=== PATIENT | male | born 1975 | race Caucasian/White ===

== ENCOUNTER 2023-05-09 13:42 | Outpatient (OUT) | payer MEDICARE, MEDICAID, SELFPAY ==
--- NOTE | 2023-05-09 | XR_ITS ---
The [address] [address] Patient Name: SHEKHAR MCNEIL MRN: [id number] date: 1975 Sex: M Assigned Patient Location: [facility] Current Patient Location: [facility] Accession/Order Number: [id number] Exam Date: 05/09/2023 13:53 Report Date: 05/09/2023 23:50 At the request of: TRINY BEVERLY Procedure: XR foot RT min 3V EXAM: XR foot RT min 3V HISTORY: RIGHT FOOT PAIN COMPARISON: None. TECHNIQUE: 3 view study FINDINGS: There is a comminuted fracture of the distal second metatarsal with mild apex lateral angulation and dorsal offset of the distal fracture fragment. There are findings associated with previous ankle/hindfoot fusion with a long intramedullary leonardo stabilized by an interlocking calcaneal screw. The right extends proximally superior to the proximal margin of the films. Bony architecture is otherwise normal. Midfoot and forefoot articulations are intact. XR/XR foot RT min 3V IMPRESSION: Comminuted second metatarsal fracture. Previous ankle/hindfoot arthrodesis. Electronically authenticated by: Bela RAWLS Date: 05/09/2023 23:50
== END 2023-05-09 13:43 | disposition home or self-care (01) ==
LOC: RAD 13:42
PROVIDERS: Visit Provider Physician Assistant
DX: M19.071 Primary osteoarthritis, right ankle and foot (principal)
CPT/HCPCS: 73630

== ENCOUNTER 2023-05-24 14:54 | Outpatient (OUT) | payer MEDICARE, MEDICAID, SELFPAY ==
--- NOTE | 2023-05-24 | XR_ITS ---
The [address] [address] Patient Name: SHEKHAR MCNEIL MRN: [id number] date: 1975 Sex: M Assigned Patient Location: [facility] Current Patient Location: [facility] Accession/Order Number: [id number] Exam Date: 05/24/2023 11:30 Report Date: 05/24/2023 13:23 At the request of: ENDY BOLAND Procedure: XR foot RT min 3V STUDY: XR foot RT min 3V, [id number] HISTORY: RIGHT FOOT PAIN COMPARISON: Right foot x-rays 05/09/2023. FINDINGS: Similar alignment and degree of displacement of the right second metatarsal fracture. There is been interval bony consolidation and callus formation. Mild soft tissue swelling over the dorsal foot, new. No acute fracture or suspicious osseous lesion. No dislocation. Visualized portions of the right tibiotalar hardware is similar. XR/XR foot RT min 3V IMPRESSION: Similar alignment and degree of displacement of the healing second metatarsal fracture. Mild soft tissue swelling over the dorsum of the foot which is of uncertain etiology. Electronically authenticated by: ANTWAN RAMIREZ Date: 05/24/2023 13:23
== END 2023-05-24 14:55 | disposition home or self-care (01) ==
LOC: RAD 14:54
PROVIDERS: Visit Provider Podiatrist Foot & Ankle Surgery
DX: M19.071 Primary osteoarthritis, right ankle and foot (principal)
CPT/HCPCS: 73630